=== PATIENT | female | born 1950 | race Caucasian/White ===

== ENCOUNTER 2020-04-20 09:49 | Emergency (ER) | payer OTHER, SELFPAY ==
[2020-04-20 09:50] VITALS: BP 192/70; PULSE 86; RESP 15; TEMP 36.8; O2SAT 99; BMI 45.1
--- NOTE | 2020-04-20 10:00 | DI.RAD.S_ITS ---
PROCEDURE: XR ACUTE ABDOMEN SERIES INDICATIONS: no bm 7 days TECHNIQUE: One view chest and two views of the abdomen were acquired. COMPARISON: None. FINDINGS: Surgical changes and devices: None. Chest: Mild patchy opacities involving the right perihilar region and right lung base. Heart size is normal. No pleural effusions. No pneumoperitoneum. Abdomen: Bowel gas pattern is normal. No suspicious calcifications. Visualized solid organ contours appear normal. There is mild stool. No specific transition point. Bones: No suspicious bony lesions. IMPRESSION: No specific evidence of bowel obstruction seen at this time although if the patient's symptoms do not improve, continued surveillance with abdominal series radiographs could be performed. Mild right perihilar and lung base opacities raising possibility of low-grade aspiration versus early pneumonia. Technically these findings age indeterminate in the absence of any prior studies. Please correlate clinically. If there is persistent clinical diagnostic uncertainty, continued surveillance with short interval chest radiographs after treatment is recommended. Dictated by: Donell Huffman M.D. on 04/20/2020 at 10:51 Approved by: Donell Huffman M.D. on 04/20/2020 at 10:53
[2020-04-20 10:14] LABS: Add Manual Diff / Slide Review NO; Basophils Absolute Auto 0 /uL (0-100); Basophils Percent Auto 0.9 % (0-2); Eosinophils Absolute Auto 100 /uL (0-450); Eosinophils Percent Auto 1.7 % (2-4); Hematocrit 39.4 % (36-46); Hemoglobin 12.8 g/dL (12.0-16.0); Lymphocytes Absolute Auto 1400 /uL (1100-4500); Lymphocytes Percent Auto 26.4 % (25-40); Mean Corpuscular HGB Conc 32.4 % (30-36); Mean Corpuscular Hemoglobin 27.9 PG (26-34); Mean Corpuscular Volume 86.1 fL (80-100); Monocytes Absolute Auto 300 /uL (0-900); Monocytes Percent Auto 6.2 % (3-14); Neutrophils Absolute Auto 3500 /uL (1500-7000); Neutrophils Percent Auto 64.8 % (50-75); Platelet Count 207 X10^3/uL (150-400); Red Blood Cell Count 4.58 X10^6/uL (4.0-5.2); Red Cell Distribution Width 13.9 % (11.6-14.8); White Blood Cell Count 5.4 X10^3/uL (4.5-11.0)
[2020-04-20 10:20] LABS: INR 1.1 (0.9-1.3)
[2020-04-20 10:22] LABS: PTT Partial Thromboplastin Tim 32 SECONDS (26.4-36.2)
[2020-04-20 10:26] LABS: Alanine Aminotransferase 16 IU/L (<35); Albumin 4.1 g/dL (3.5-5.0); Albumin Globulin Ratio 1.2 (1.0-2.8); Alkaline Phosphatase 101 U/L (38-126); Aspartate Aminotransferase 24 IU/L (14-36); BUN Creatinine Ratio 12.9 (6-22); Bilirubin Total 0.5 mg/dL (0.2-1.3); Blood Urea Nitrogen 12 mg/dL (7-17); Calcium 8.6 mg/dL (8.4-10.2); Carbon Dioxide 29 mmol/L (22-32); Chloride 104 mmol/L (98-107); Globulin 3.4 g/dL (1.7-4.1); Glucose 134 mg/dL (80-110); HEMOLYSIS < 15 (0-50); Lipase 86 U/L (23-300); Potassium 4.2 mmol/L (3.4-5.1); Sodium 138 mmol/L (137-145); Total Protein 7.5 g/dL (6.3-8.2)
--- NOTE | 2020-04-20 11:03 | ED.ABDPAIN ---
HPI - Abdominal Pain <KARLIE Umaña - Last Filed: 04/20/20 13:32> General Chief Complaint: Abdominal Pain Stated Complaint: bowel obstruction Time Seen by Provider: 04/20/20 10:41 Source: patient Mode of arrival: Ambulatory Limitations: no limitations History of Present Illness HPI narrative: The patient is a 69-year-old female nonsmoker with history of hyperlipidemia, hypothyroid presents with a chief complaint of not having a bowel movement for the past 7 days. She denies any nausea or vomiting, is not eating as much as usual. She denies any fevers muscle aches or chills. She states that she recently traveled home from visiting her 1st grandchild in [place]. She does note that when her mother had a bowel obstruction, she had surgery and then they found that her abdomen was full of cancer, so she is very concerned about the fact that she is not having bowel movements because she does not want that to happen to her. She denies any abdominal pain. She states that she is not moving gas. Related Data Allergies Allergy/AdvReac Type Severity Reaction Status Date / Time Penicillins Allergy Verified 04/20/20 09:56 Sulfa (Sulfonamide Allergy Verified 04/20/20 09:56 Antibiotics) Review of Systems <KARLIE Umaña - Last Filed: 04/20/20 13:32> Review of Systems Narrative: GENERAL: Denies chills, fatigue, malaise, fever, sweats. HEENT: Denies sinus pain, ear pain, sore throat, difficulty swallowing, dizziness. RESPIRATORY: Denies dyspnea, cough, wheezing, hemoptysis, sputum. CARDIOVASCULAR: Denies chest pain, palpitations, orthopnea, edema, GASTROINTESTINAL: See HPI : Denies dysuria, frequency, incontinence, hematuria, urinary retention. MUSCULOSKELETAL: denies weakness, joint pain, or bony pain SKIN: Denies rash, skin lesions, or other NEUROLOGIC: Denies weakness, headache, numbness, change in speech, confusion, seizures, incoordination. PSYCHIATRIC: No concerning psychosocial issues. 12 point review of systems is negative except for those stated above Patient History <KARLIE Umaña - Last Filed: 04/20/20 13:32> Medical History (Updated 04/20/20 @ 12:18 by KARLIE Umaña) Hyperlipidemia Hypothyroid Social History Smoking Status: Unknown if ever smoked Smoking Status: Unknown if ever smoked alcohol intake frequency: holidays/special occasions only Substance Use Type: does not use Exam <KARLIE Umaña - Last Filed: 04/20/20 13:32> Narrative Exam Narrative: GENERAL: This is a well-nourished, well-developed patient, in no acute distress HEAD: Atraumatic. Normocephalic. No temporal or scalp tenderness. EYES: Pupils equal round and reactive. Extraocular motions intact. No scleral icterus. No injection or drainage. ENT: Nose without bleeding, purulent drainage or septal hematoma. Wearing a mask. Airway patent. NECK: Trachea midline. No JVD or lymphadenopathy. Supple, nontender, no meningeal signs. CARDIOVASCULAR: Regular rate and rhythm RESPIRATORY: Clear to auscultation. Breath sounds equal bilaterally. No wheezes, rales, or rhonchi. No cough. No increased respiratory effort. No accessory muscle use GASTROINTESTINAL: Abdomen soft, non-tender, nondistended. No hepato-splenomegaly, or palpable masses. No guarding. Active bowel sounds all 4 quadrants EXTREMITIES: No clubbing, cyanosis, or edema. No joint tenderness, effusion, or edema noted. BACK: Nontender without deformity or crepitance. No flank tenderness. NEURO: AOx3. SKIN: No rash or erythema visible skin Initial Vital Signs Initial Vital Signs: Vital Signs Temperature 98.2 F 04/20/20 09:50 Pulse Rate 86 04/20/20 09:50 Respiratory Rate 15 04/20/20 09:50 Blood Pressure 192/70 H 04/20/20 09:50 Pulse Oximetry 99 04/20/20 09:50 <Raquel Pozo DO - Last Filed: 04/20/20 19:30> Initial Vital Signs Initial Vital Signs: Vital Signs Temperature 98.2 F 04/20/20 09:50 Pulse Rate 86 04/20/20 09:50 Respiratory Rate 15 04/20/20 09:50 Blood Pressure 192/70 H 04/20/20 09:50 Pulse Oximetry 99 04/20/20 09:50 Scores <KARLIE Umaña - Last Filed: 04/20/20 13:32> GCS [place] coma scale eye opening: Spontaneous [place] coma scale verbal response: Orientated [place] coma scale motor response: Obey commands [place] coma scale total score: 15 Course <KARLIE Umaña - Last Filed: 04/20/20 13:32> Orders Ordered: ED Orders 04/20/20 10:42 Lactate (Lactic Acid) Stat Discontinued Medications Magnesium Citrate (Magnesium Citrate 300 Ml Solution) 300 ml PO NOW ONE Stop: 04/20/20 11:55 Last Admin: 04/20/20 12:24 Dose: 300 ml Documented by: MMINOR Vital Signs Vital signs: Vital Signs - 8 hr 04/20/20 12:30 Pulse Rate 72 Respiratory Rate 15 Blood Pressure 184/96 H Pulse Oximetry 98 <Raquel Pozo DO - Last Filed: 04/20/20 19:30> Orders Ordered: ED Orders 04/20/20 10:42 Lactate (Lactic Acid) Stat Discontinued Medications Magnesium Citrate (Magnesium Citrate 300 Ml Solution) 300 ml PO NOW ONE Stop: 04/20/20 11:55 Last Admin: 04/20/20 12:24 Dose: 300 ml Documented by: MMINOR Vital Signs Vital signs: Vital Signs - 8 hr 04/20/20 12:30 Pulse Rate 72 Respiratory Rate 15 Blood Pressure 184/96 H Pulse Oximetry 98 MDM - Abdominal Pain <KARLIE Umaña - Last Filed: 04/20/20 13:32> Lab Data Attestation: I reviewed the patient's lab results. Result diagrams: 04/20/20 10:06 04/20/20 10:06 Labs: Lab Results 04/20/20 04/20/20 04/20/20 Range/Units 10:06 10:06 10:06 WBC 5.4 (4.5-11.0) X10^3/uL RBC 4.58 (4.0-5.2) X10^6/uL Hgb 12.8 (12.0-16.0) g/dL Hct 39.4 (36-46) % MCV 86.1 (80-100) fL MCH 27.9 (26-34) PG MCHC 32.4 (30-36) % RDW 13.9 (11.6-14.8) % Plt Count 207 (150-400) X10^3/uL Neut % (Auto) 64.8 (50-75) % Lymph % (Auto) 26.4 (25-40) % [place] % (Auto) 6.2 (3-14) % Eos % (Auto) 1.7 L (2-4) % Baso % (Auto) 0.9 (0-2) % Neut # (Auto) 3500 (4911-7635) /uL Lymph # (Auto) 1400 (9783-5893) /uL [place] # (Auto) 300 (0-900) /uL Eos # (Auto) 100 (0-450) /uL Baso # (Auto) 0 (0-100) /uL PT 13.0 H (10.1-12.7) SECONDS INR 1.1 (0.9-1.3) APTT 32 (26.4-36.2) SECONDS Sodium 138 (137-145) mmol/L Potassium 4.2 (3.4-5.1) mmol/L Chloride 104 (98-107) mmol/L Carbon Dioxide 29 (22-32) mmol/L BUN 12 (7-17) mg/dL Creatinine 0.93 (0.52-1.04) mg/dL Estimated GFR 60.0 (>60) mL/min BUN/Creatinine Ratio 12.9 (6-22) Glucose 134 H (80-110) mg/dL Calcium 8.6 (8.4-10.2) mg/dL Total Bilirubin 0.5 (0.2-1.3) mg/dL AST 24 (14-36) IU/L ALT 16 (<35) IU/L Alkaline Phosphatase 101 (38-126) U/L Total Protein 7.5 (6.3-8.2) g/dL Albumin 4.1 (3.5-5.0) g/dL Globulin 3.4 (1.7-4.1) g/dL Albumin/Globulin Ratio 1.2 (1.0-2.8) Lipase 86 (23-300) U/L Imaging Data Abdominal x-ray: Radiologist's Impression: [address] [place] [id number] ReportSigned Patient: Gaye Sorensen MMR#: [id number]: 2Acct:[id number]/Sex: 69 / FDate of Service: 04/20/20Loc: EDAccession Number: [id number] Procedure: XR acute abdomen series Ordering Provider: Raquel Pozo D.O. PROCEDURE: XR ACUTE ABDOMEN SERIES INDICATIONS: no bm 7 days TECHNIQUE: One view chest and two views of the abdomen were acquired. COMPARISON: None. FINDINGS: Surgical changes and devices: None. Chest: Mild patchy opacities involving the right perihilar region and right lung base. Heart size is normal. No pleural effusions. No pneumoperitoneum. Abdomen: Bowel gas pattern is normal. No suspicious calcifications. Visualized solid organ contours appear normal. There is mild stool. No specific transition point. Bones: No suspicious bony lesions. IMPRESSION: No specific evidence of bowel obstruction seen at this time although if the patient's symptoms do not improve, continued surveillance with abdominal series radiographs could be performed. Mild right perihilar and lung base opacities raising possibility of low-grade aspiration versus early pneumonia. Technically these findings age indeterminate in the absence of any prior studies. Please correlate clinically. If there is persistent clinical diagnostic uncertainty, continued surveillance with short interval chest radiographs after treatment is recommended. Dictated by: Donell Huffman M.D. on 04/20/2020 at 10:51 Approved by: Donell Huffman M.D. on 04/20/2020 at 10:53 [facility] Narrative Medical decision making narrative: The patient is a 69-year-old female presents with a chief complaint of concern for bowel obstruction. She has no abdominal pain, has active bowel sounds, has no leukocytosis. Her x-ray shows no evidence of bowel obstruction. Thus I believe at this point she is constipated rather than bowel obstruction. I discussed at length regimens to help with constipation including magnesium citrate, which the patient was given to take at home. I discussed at length follow up with primary care provider in the next few days, as well as coming back to the ER if she is unable to keep down fluids, abdominal pain with fever etcetera. Discussed the finding of possible pneumonia on her x-ray, however the patient has no shortness of breath, no coughing clear lung sounds so we will hold on therapy at this point time. Patient has no questions or concerns upon discharge and states understanding of return precautions as well as follow-up care. <Raquel Pozo, - Last Filed: 04/20/20 19:30> Lab Data Labs: Lab Results 12/31/20 12/31/20 12/31/20 Range/Units 10:06 10:06 10:06 WBC 5.4 (4.5-11.0) X10^3/uL RBC 4.58 (4.0-5.2) X10^6/uL Hgb 12.8 (12.0-16.0) g/dL Hct 39.4 (36-46) % MCV 86.1 (80-100) fL MCH 27.9 (26-34) PG MCHC 32.4 (30-36) % RDW 13.9 (11.6-14.8) % Plt Count 207 (150-400) X10^3/uL Neut % (Auto) 64.8 (50-75) % Lymph % (Auto) 26.4 (25-40) % [place] % (Auto) 6.2 (3-14) % Eos % (Auto) 1.7 L (2-4) % Baso % (Auto) 0.9 (0-2) % Neut # (Auto) 3500 (4059-8168) /uL Lymph # (Auto) 1400 (4377-5122) /uL [place] # (Auto) 300 (0-900) /uL Eos # (Auto) 100 (0-450) /uL Baso # (Auto) 0 (0-100) /uL PT 13.0 H (10.1-12.7) SECONDS INR 1.1 (0.9-1.3) APTT 32 (26.4-36.2) SECONDS Sodium 138 (137-145) mmol/L Potassium 4.2 (3.4-5.1) mmol/L Chloride 104 (98-107) mmol/L Carbon Dioxide 29 (22-32) mmol/L BUN 12 (7-17) mg/dL Creatinine 0.93 (0.52-1.04) mg/dL Estimated GFR 60.0 (>60) mL/min BUN/Creatinine Ratio 12.9 (6-22) Glucose 134 H (80-110) mg/dL Calcium 8.6 (8.4-10.2) mg/dL Total Bilirubin 0.5 (0.2-1.3) mg/dL AST 24 (14-36) IU/L ALT 16 (<35) IU/L Alkaline Phosphatase 101 (38-126) U/L Total Protein 7.5 (6.3-8.2) g/dL Albumin 4.1 (3.5-5.0) g/dL Globulin 3.4 (1.7-4.1) g/dL Albumin/Globulin Ratio 1.2 (1.0-2.8) Lipase 86 (23-300) U/L Discharge Plan Departure Patient Disposition: Home Clinical Impression: Constipation Qualifiers: Constipation type: unspecified constipation type Qualified Code(s): K59.00 - Constipation, unspecified Instructions: DI for Constipation Activity Restrictions/Additional Instructions: Thank you for trusting us with your care today. As discussed, please follow-up with primary care provider in the next few days. Your lab work is reassuring, your imaging has no evidence of bowel obstruction. Please continue constipation remedies over the next few days. I suggest Senokot in either tablets or smooth move tea every day, continued use of Colace docusate which is a stool softener. You can add MiraLax. We have sent you home with magnesium citrate. Additionally I recommend warm applesauce, mixed with warm prune juice with a tab of butter on top. Please come back to the emergency department for any acute concerns such as abdominal pain with fever, inability keep down fluids etcetera Referrals: Bridgette Gibson PA-C [Primary Care Provider] - <Raquel Pozo DO - Last Filed: 04/20/20 19:30> Cosign ED Attending Hunter Attestation: I was immediately available in the department for consultation. Documentation has been reviewed. I agree with assessment and plan.
[2020-04-20] MEDS: MAGNESIUM CITRATE 300 ML SOLUTION PO (12:24)
[2020-04-20 12:30] VITALS: BP 184/96; PULSE 72; RESP 15; O2SAT 98
[2020-04-21 00:08] LABS: Lactate (Lactic Acid) 1.3 mmol/L (0.7-2.1)
== END 2020-04-20 12:31 | disposition home or self-care (01) ==
PROVIDERS: Emergency Medicine; Emergency Provider Nurse Practitioner Family; PCP Physician Assistant Medical
DX: K59.00 Constipation, unspecified (principal); E78.5 Hyperlipidemia, unspecified; E03.9 Hypothyroidism, unspecified
CPT/HCPCS: 36415; 74022; 80053; 83605; 83690; 85025; 85610; 85730; 99283; 99284

== ENCOUNTER → 2020-08-21 08:54 | Outpatient (CLI) | payer OTHER, SELFPAY ==
[2020-08-21 11:23] LABS: COVID19 -Nasal RAPID Negative (Negative)
== END ==
PROVIDERS: PCP Physician Assistant Medical; Visit Provider Student in an Organized Health Care Education/Training Program
DX: Z01.812 Encounter for preprocedural laboratory examination (principal); Z20.822 Contact with and (suspected) exposure to COVID-19
CPT/HCPCS: 87635

== ENCOUNTER 2020-08-23 09:36 | Day surgery (SDC) | payer OTHER, SELFPAY ==
[2020-08-23] VITALS (12 sets, daily range): BP systolic 116–140; BP diastolic 64–79; PULSE 63–85; RESP 10–20; TEMP 36.6–37.1; O2SAT 96–100; BMI 44.4
--- NOTE | 2020-08-23 | PATH_ITS ---
[facility] Accession Number: [id number] . 01 Material submitted: . cecum - CECAL POLYPS . 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 [facility] 08/28/2020 1523 Local . 02 Electronically signed: . Kylie Mccoy MD, Pathologist NPI- [id number] . 01 Gross description: . The specimen is received in formalin labeled cecal polyps and consists of multiple dubose fragments of soft tissue, measuring 0.8 x 0.7 x 0.2 cm in aggregate. The specimen is entirely submitted in cassette A1. ([id number]) /[facility] 08/24/2020 1633 Local . 02 Pathologist provided ICD-10: D12.0 . 02 CPT . 895744 Performed at: 01 [facility] [address] [id number] MD Edy Stock MD Phone: [phone] Performed at: 02 [facility] [address] [place] [id number] MD Kylie Mccoy MD Phone: [phone]
[2020-08-23] MEDS: SODIUM CHLORIDE 0.9% 1,000 ML 100 ML IV (10:01)
--- NOTE | 2020-08-23 10:41 | P.HP_ITS ---
History of Present Illness History of Present Illness Date Patient Seen: 08/23/20 Chief complaint: SDC Narrative: Family history of cancer in her mother which may have been colon cancer and personal history of colon polyps Patient History Medical History (Updated 05/05/20 @ 00:00 by ) Hyperlipidemia Hypothyroid Family & Social History Social History: household members significant other Tobacco & Substance use: Smoking Status Never smoker alcohol intake frequency holiday/special occasion Substance Use Type does not use Meds Home Medications and Allergies Home Medications Medication Instructions Recorded Confirmed Type aspirin [Aspir-Low] 81 mg PO DAILY 08/23/20 08/23/20 History atorvastatin 10 mg PO DAILY 08/23/20 08/23/20 History chlorpheniramine-pseudoephed 2 - 3 cap PO PRN PRN 08/23/20 08/23/20 History [Chlorphedrine SR] fluticasone propionate 2 spray INTRANASAL DAILY 08/23/20 08/23/20 History levothyroxine 88 mcg PO DAILY 08/23/20 08/23/20 History montelukast 10 mg PO DAILY 08/23/20 08/23/20 History trazodone 08/23/20 History Allergies Allergy/AdvReac Type Severity Reaction Status Date / Time Penicillins Allergy Verified 08/23/20 10:02 Sulfa (Sulfonamide Allergy Verified 08/23/20 10:02 Antibiotics) Exam Vital Signs (past 8 hours): - 08/23/20 10:00 Temperature 98.5 F Pulse Rate 85 Respiratory Rate 20 Blood Pressure 140/79 Pulse Oximetry 100 Oxygen Delivery Method Room Air Narrative Exam Narrative: Oropharynx free of lesions Chest clear to auscultation percussion Cardiac exam reveals no S3 or murmur Assessment & Plan Assessment & Plan narrative: History of colon polyps need for follow-up colonosc opy. Risks, benefits, alternatives have been explained.
--- NOTE | 2020-08-23 10:42 | PM.OP.ENDO ---
Operative Date/Time/Diagnoses Date of procedure: 08/23/20 Pre-op diagnosis: See indication and findings Procedure & Clinicians Study performed: Colonoscopy Same procedure as scheduled: Yes Indications: Personal history of colon polyps Surgeon: Tammi Jose Procedure Notes Procedure in detail: After informed consent was obtained the patient was placed in left lateral decubitus position. The video colonoscope was introduced the rectum slowly advanced to the cecum. Preparation was good. On slow withdrawal mucosa was became examined. The scope was removed. The patient tolerated procedure well. Blood loss none Complications none Sedation Total sedation time 28 minutes Versed 14 mg fentanyl 200 micro g Benadryl 25 mg IV titration Findings 1. Four polyps were found in the cecum ranging from 3-7 mm. All were removed completely with Jumbo biopsy forceps. 2. Otherwise negative colonoscopy to cecum Given the number of polyps we will have Gaye follow-up with colonoscopy in 5 years Of note is she was very difficult to sedate with standard moderate sedation. Future colonoscopy should be done with anesthesia assistance
[2020-08-23] MEDS: MIDAZOLAM 5 MG/5 ML VIAL IV (11:00)
[2020-08-23] MEDS: fentaNYL 250 MCG/5 ML INJ IV (11:00)
[2020-08-23] MEDS: diphenhydrAMINE 50 MG/ML VIAL 25 MG IV (11:13)
== END 2020-08-23 12:41 | disposition home or self-care (01) ==
PROVIDERS: PCP Physician Assistant Medical; Referring Provider Internal Medicine Gastroenterology; Visit Provider Internal Medicine Gastroenterology
PROC: 0DJD8ZZ Inspection of Lower Intestinal Tract, Via Natural or Artificial Opening Endoscopic (ICD-10-PCS; CPT 45378; principal; 2020-08-23 11:00)
DX: Z12.11 Encounter for screening for malignant neoplasm of colon (principal); Z86.010 Personal history of colon polyps; E03.9 Hypothyroidism, unspecified; E66.9 Obesity, unspecified; Z68.42 Body mass index [BMI] 45.0-49.9, adult; E78.5 Hyperlipidemia, unspecified; D12.0 Benign neoplasm of cecum
CPT/HCPCS: 45380; J1200; J2250; J3010